=== PATIENT | female | born 1950 | race Caucasian/White ===

== ENCOUNTER → 2017-01-27 | Outpatient (CLI) | payer MEDICARE, BC ==
[2017-01-27 12:51] LABS: CHLORIDE,CL 109 mmol/L (98-110); SODIUM,NA 142 mmol/L (136-146)
== END ==
LOC: MW.LAB 12:00
PROVIDERS: ATTEND Internal Medicine Rheumatology
DX: Z03.6 Encounter for observation for suspected toxic effect from ingested substance ruled out (principal); M19.90 Unspecified osteoarthritis, unspecified site
CPT/HCPCS: 36415; 80053; 85025

== ENCOUNTER 2022-09-30 08:05 | Day surgery (SDC) | payer MEDICARE, BC ==
[~2022-09-30 08:05] MED LIST: Lactated Ringers 1,000 ML IV SCH; Lidocaine 2% 5 ML SDV ONE; Propofol 200 MG/20 ML SDV ONE; Sodium Chloride 0.9% 10 ML Syringe FLUSH PRN; Sodium Chloride 0.9% 2.5 ML Syringe FLUSH PRN; Sodium Chloride 0.9% 20 ML SDV IV PRN; fentaNYL 100 MCG/2 ML SDV ONE
[2022-09-30] MEDS ORDERED: cefOXitin 100 ML ONE (10:11)
[2022-09-30 10:57] VITALS: BP 155/74; PULSE 82
== END 2022-09-30 11:20 | disposition home or self-care (01) ==
LOC: MW.SDS 08:05
PROVIDERS: ATTEND Surgery
DX: Z12.11 Encounter for screening for malignant neoplasm of colon (principal); K57.30 Diverticulosis of large intestine without perforation or abscess without bleeding; J30.9 Allergic rhinitis, unspecified; E78.5 Hyperlipidemia, unspecified; E66.9 Obesity, unspecified; M19.90 Unspecified osteoarthritis, unspecified site; Z91.048 Other nonmedicinal substance allergy status; Z79.899 Other long term (current) drug therapy; Z79.82 Long term (current) use of aspirin; Z88.8 Allergy status to other drugs, medicaments and biological substances; Z88.6 Allergy status to analgesic agent; Z98.890 Other specified postprocedural states; Z68.31 Body mass index [BMI] 31.0-31.9, adult; Z96.643 Presence of artificial hip joint, bilateral; Z96.653 Presence of artificial knee joint, bilateral
CPT/HCPCS: G0121; J0694; J2704; J3010; J7120

== ENCOUNTER 2025-05-25 09:53 | Day surgery (SDC) | payer MEDICARE, BC ==
[2025-05-25] MEDS: Lactated Ringers 1,000 ML IV SCH (11:09)
[2025-05-25] MEDS ORDERED: propofoL 500 MG/50 ML 50 ML ONE (11:16)
[2025-05-25 12:43] VITALS: PULSE 55
[2025-05-25 12:55] VITALS: BP 119/56
== END 2025-05-25 13:00 | disposition home or self-care (01) ==
LOC: MW.SDS 09:53
PROVIDERS: ATTEND Surgery
DX: Z12.11 Encounter for screening for malignant neoplasm of colon (principal); D12.3 Benign neoplasm of transverse colon; K57.30 Diverticulosis of large intestine without perforation or abscess without bleeding; E11.9 Type 2 diabetes mellitus without complications; Z88.8 Allergy status to other drugs, medicaments and biological substances; Z91.09 Other allergy status, other than to drugs and biological substances; Z79.82 Long term (current) use of aspirin; Z79.899 Other long term (current) drug therapy
CPT/HCPCS: 45380; J2003; J2704; J7120; 00811; 88305; 99100